=== PATIENT | female | born 1925 | race Caucasian/White ===

== ENCOUNTER → 2016-08-11 | Outpatient (CLI) | payer MEDICARE, BC ==
[~2016-08-11] MED LIST: ACETAMINOPHEN PO; ACTOS PO; ACTOS15 MG PO; AXID AR75 MG PO; AXID150 M1 PO; AXID150 MG PO; CALCIUM 600 + D1 TA1 PO; CALCIUM 600+D T1 TA1 PO; COATED ASPIRIN325 M1 PO; ELIQUIS5 MG PO; FERRO-TIME325 MG PO; FERROUS SULFATE PO; GLUCOPHAGE500 M1 PO; HUMALOG MIX 75/10 ML SUBQ; IRON325 MG PO; KLOR-CON PO; LASIX PO; LEVEMIR FL100 UNIT/1 SUBQ; LEVEMIR SUBQ; LEVEMIR100 UNITS/ SUBQ; LIPITOR PO; LOPRESSOR PO; LYRICA50 MG PO; METFORMIN HCL500 M1 PO; NEURONTIN PO; NITROFURANTOIN100 M3 PO; NORCO 10-325 TA1 TAB PO; NOVOLOG FL100 UNIT/1 SUBQ; NOVOLOG100 U/ML; NOVOLOG100 UNITS/ SUBQ; OMNICEF300 MG PO; OYSTER CALCIUM500 MG PO; PYRIDIUM100 MG PO; TRADJENTA5 MG PO; VIT B-12 PO; ZYLOPRIM100 MG PO; [UNRECOGNIZED DRUG - OTHER]; [UNRECOGNIZED DRUG - REMARK]
--- NOTE | ~2016-08-11 | MR2 ---
[facility] A Service of [facility] & [facility] RADIOLOGY TEXT RESULTS PATIENT: OMAR PALACIOS [facility] : [birth year] UNIT #: [id number] AGE: [address]: Guerrero Toledo MD SEX: F ORDER DR: [id number] [facility] [address] [place], [place] [address] [id number] O MR#: [id number] Acc #: [id number] NAME: OMAR PALACIOS : 1925 SEX: F STUDY DATE/TIME: 08/11/2016 14:20 UNIT: [facility] ROOM: STUDY DESCRIPTION: MR Abdomen WWo Cont Attending Physician: Guerrero Toledo M.D. Referring Physician: Guerrero Toledo M.D. Ordering Physician: Guerrero Toledo M.D. Primary Care Physician: Tito Hernandez Jr., M.D. MRI CENTER REPORT This report is preliminary unless electronic signature is present. EXAM MRI abdomen, with and without contrast. HISTORY Indeterminate renal lesions on recent CT and ultrasound. Observation for renal mass. PROCEDURE Multiplanar, multisequence MR imaging of the abdomen prior to and following 16 mL of MultiHance. COMPARISON STUDIES CT of the abdomen and pelvis, 06/07/2016, and a renal ultrasound from 06/21/2016. FINDINGS ABDOMEN WITHOUT CONTRAST: Mildly elevated right hemidiaphragm. There are a few small stones in the gallbladder; no evidence for active inflammation. The biliary system and pancreatic duct nondilated. There are a few small cysts scattered throughout the pancreas with an index cyst in the uncinate process measuring 3 mm. The spleen, adrenal glands have normal signal. Bowel loops are nondilated. There is a 4.9-cm diverticulum from the second portion of the duodenum, and a 2-cm diverticulum from the junction of the third and fourth portions of the duodenum. ABDOMEN WITH CONTRAST: 8-mm benign pernicious or hemorrhagic cyst, upper pole, left kidney, and a 5-mm benign pernicious or hemorrhagic cortical cyst in the mid to lower right kidney. There is no enhancing renal mass. There is a 9-mm benign simple cyst in the lower pole of the right kidney. No abnormal enhancement in the abdomen. [facility] A Service of [facility] RADIOLOGY TEXT RESULTS PATIENT: OMAR PALACIOS LOCATION: [facility] : [birth year] UNIT #: [id number] AGE: [address]: Guerrero Toledo MD SEX: F ORDER DR: IMPRESSION 1. Subcentimeter benign cysts in both kidneys, as detailed above. No enhancing renal mass. 2. Uncomplicated cholelithiasis. 3. A few tiny cysts in the pancreas, probably benign incidental cysts. Per the ACL white paper, consider attention on a 1-year follow-up. Preferably, this would be with MRI. 4. Duodenal diverticula, as detailed above. Dictated by... Kenroy Sexton M.D. THIS IS AN ELECTRONICALLY VERIFIED REPORT Kenroy Sexton M.D. at 08/13/2016 2:11 PM Ivana TD: 08/12/2016 13:04 JOB #: [id number] MRI CENTER REPORT COPY
[2016-08-11 14:20] LABS: POC - CREATININE 0.77 mg/dL (0.44-1.03); POC - GFR >60.0 mL/min (>60)
== END | disposition home or self-care (01) ==
LOC: CMRI 13:34
PROVIDERS: Urology
DX: N28.89 Other specified disorders of kidney and ureter (principal); N28.1 Cyst of kidney, acquired; K80.20 Calculus of gallbladder without cholecystitis without obstruction; K86.2 Cyst of pancreas; K57.10 Diverticulosis of small intestine without perforation or abscess without bleeding
CPT/HCPCS: 74183; 82565; A9577

== ENCOUNTER 2016-11-23 12:57 | Inpatient (IN) | payer MEDICARE, BC ==
--- NOTE | ~2016-11-23 | CR63 ---
[facility] A Service of [facility] & [facility] RADIOLOGY TEXT RESULTS PATIENT: OMAR PALACIOS LOCATION: [facility] 570-01 : [birth year] UNIT #: [id number] AGE: [address]: Miah Rhodes MD SEX: F ORDER DR: [id number] [facility] [address] [place], [place] [address] [id number] I MR#: [id number] Acc #: [id number] NAME: OMAR PALACIOS : 1925 SEX: F STUDY DATE/TIME: 11/23/2016 16:21 UNIT: [facility] ROOM: [facility] STUDY DESCRIPTION: CR Chest 2 View Attending Physician: Miah Rhodes M.D. Ordering Physician: Miah Rhodes M.D. Primary Care Physician: Tito Hernandez Jr., M.D. MEDICAL IMAGING REPORT This report is preliminary unless electronic signature is present EXAM PA and lateral chest. INDICATIONS Congestive heart failure 2 months. Bilateral which lower extremity edema 2 months. COMPARISON 10/16/2014 FINDINGS There is stable mild interstitial prominence suggesting some mild interstitial edema. No airspace consolidation. Heart size stable. Atherosclerotic calcification of the aorta. Degenerative changes of thoracic spine. IMPRESSION Mild interstitial prominence suggesting mild interstitial edema. Correlate clinically. Dictated by... Brandyn Joiner M.D. THIS IS AN ELECTRONICALLY VERIFIED REPORT Brandyn Joiner M.D. at 11/24/2016 8:18 AM JENNIFER/michelet TD: 11/23/2016 23:54 JOB #: [id number] MEDICAL IMAGING REPORT Page 1 of 1 COPY
--- NOTE | ~2016-11-23 | ST ---
Unit #: [id number] #: [id number] Patient: OMAR PALACIOS [id number] [address] [address] [id number] I MR#: [id number] NAME: OMAR PALACIOS : 1925 SEX: F STUDY DATE/TIME: UNIT: [facility] ROOM: 570 STUDY DESCRIPTION: Stress Test Attending Physician: Miah Rhodes M.D. Primary Care Physician: Tito Hernandez Jr., M.D. CARDIOLOGY REPORT EXAM Lexiscan Cardiolite Stress Test DESCRIPTION Baseline EKG - normal sinus rhythm with ventricular rate 60 beats/minute, left atrial abnormality, Q waves in V, poor R wave progression, prolonged QT. Lexiscan is a four minute test with Lexiscan being injected within the first minute followed by Cardiolite. EKG during the test was equivocal to baseline. No acute ischemic changes. The patient had no complaints of chest pain, palpitations or dizziness. Had increased shortness of breath and fatigueness which resolved in recovery phase. Maximum heart rate response was 76 beats/minute with a maximum blood pressure response of 165/70 mmHg. Cardiolite was injected after Lexiscan within the first minute of the test. Radionuclide test pending. Please correlate with nuclear images. Dictated by... Carlos TraorePYanetRRosemary for Lawrence Tucker/svetlana TD: 11/25/2016 12:09 JOB #: [id number] Unit #: [id number] #: [id number] Patient: OMAR PALACIOS CARDIOLOGY REPORT Page 1 of 1 X Alyson Benjamin APRN CARDIOLOGY REPORT
--- NOTE | ~2016-11-23 | US84 ---
[id number] [facility] [address] [place], [place] [address] [id number] I MR#: [id number] Acc #: [id number] NAME: OMAR PALACIOS : 1925 SEX: F STUDY DATE/TIME: 11/25/2016 9:03 UNIT: [facility] ROOM: 570 STUDY DESCRIPTION: US LE Veins Complete Calderon Stdy Attending Physician: Miah Rhodes M.D. Ordering Physician: Miah Rhodes M.D. Primary Care Physician: Tito Hernandez Jr., M.D. MEDICAL IMAGING REPORT This report is preliminary unless electronic signature is present DATE OF EXAMINATION 11/25/2016 EXAMINATION Bilateral lower extremity venous duplex. CLINICAL HISTORY Bilateral lower extremity swelling x1 month. FINDINGS There is phasic spontaneous flow with respiration seen of the right common femoral, deep femoral, femoral, popliteal veins. There is compressibility of the vein lumen of all the aforementioned vessels. There is flow present with augmentation of the right anterior tibial, posterior tibial, and peroneal vein. There is compressibility of these vein lumens as well. Saphenous vein also has normal phasic spontaneous flow and compressibility. There is phasic spontaneous flow with respiration seen of the left common femoral vein. There is, however, the presence of a small linear, echogenic thrombus seen in the left common femoral vein. There is also phasic spontaneous flow with respiration seen of the left deep femoral, femoral, popliteal vein. There is compressibility of the vein lumen of all the aforementioned vessels. There is flow present with respiration of the left anterior and posterior tibial vein, as well as peroneal veins. There is compressibility of all the aforementioned vessels. Saphenous vein also is compressible as normal flow. IMPRESSION 1. Positive exam for DVT of the left common femoral vein. Based on the appearance of the thrombus, it does appear to be more chronic in nature. 2. No evidence of a DVT of the right lower extremity. Dictated by... Quintin Fine M.D. THIS IS AN ELECTRONICALLY VERIFIED REPORT Quintin Fine M.D. at 12/06/2016 1:47 PM Adrian TD: 11/25/2016 21:54 JOB #: [id number] MEDICAL IMAGING REPORT Page 1 of 1 COPY
--- NOTE | ~2016-11-23 | DS ---
Unit #: [id number] #: [id number] Patient: OMAR PALACIOS [id number] [address] [address] [id number] I MR#: [id number] NAME: OMAR PALACIOS ROOM: 570 Age: 89 Sex: F Admission Date: 11/23/2016 : 1925 Discharge Date: 11/26/2016 Attending Physician: Miah Rhodes M.D. Primary Care Physician: Tito Hernandez Jr., M.D. DISCHARGE SUMMARY DISCHARGE DIAGNOSES 1. 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 2. 2D echocardiogram, 11/23/2016, shows an ejection fraction of 60% with moderate mitral annular calcification. There is moderate to severe mitral regurgitation. Right ventricular systolic pressure 59 mmHg persistent with moderate pulmonary hypertension, mild to moderate tricuspid regurgitation. Aortic valve area is 1.13 cm2 with a maximum gradient of 13 mmHg, mean gradient of 7 mmHg. Moderately calcified aortic valve. 3. Hypertension. 4. Diabetes mellitus type 2. 5. Chronic anemia. 6. Moderate pulmonary hypertension. 7. Dyspnea secondary to valvular heart disease and pulmonary hypertension. DISCHARGE MEDICATIONS 1. Lyrica 50 mg b.i.d. 2. Actos 15 mg q.h.s. 3. Metoprolol tartrate 25 mg b.i.d. 4. Tradjenta 5 mg daily. 5. Furosemide 40 mg b.i.d. 6. Lipitor 20 mg q.h.s. 7. Cozaar 25 mg b.i.d. 8. NovoLog 20 units subcu b.i.d. 9. Levemir 40 mg b.i.d. 10. Ferrous sulfate 325 mg b.i.d. 11. Allopurinol 100 mg q.h.s. 12. Aspirin 81 mg daily. 13. Eliquis 10 mg b.i.d. x7 days and then 5 mg b.i.d. HOSPITAL COURSE This is an 89-year-old white female who was sent for evaluation to the office for lower extremity edema and shortness of breath. She has had worsening leg edema for the past six months. She complained of dyspnea after walking approximately 100 feet. She was admitted to the hospital for presumed congestive heart failure. 2D echocardiogram in the office found the patient to have moderate to severe mitral regurgitation and pulmonary hypertension. There was normal left ventricular systolic function with no diastolic dysfunction noted. She was treated for heart failure initially where she was placed on IV diuretics and Losartan. She is continued on her home dose of statin. BNP was 132. It was felt the leg edema was not because of fluid overload. She was ruled out for venous insufficiency. Venous Doppler study found the patient to have a left Unit #: [id number] #: [id number] Patient: OMAR PALACIOS common femoral deep vein thrombosis but, based on the appearance of the thrombus, it seems to be more chronic in nature. IV diuretics were switched to oral because there was no evidence of heart failure. She was placed on a heparin drip for deep vein thrombosis. It was discussed with the patient her options of anticoagulation with Coumadin versus the NOAC. The patient wanted to try NOAC first. [employer] cost for the patient was one dollar a month. She had no contraindications of bleeding. Her hemoglobin is low at 10.4 for which she has had anemia in the past. She was on an iron supplement prior to admission. She had an EGD with colonoscopy in 2012 for evaluation of anemia, which only mild gastritis was found. She had Lexiscan Cardiolite stress test to rule out ischemic heart disease given her multiple risk factors where there was no ischemia or infarct. Her ejection fraction was 72%. The patient has ambulated in the room without any additional shortness of breath. She still has some edema to her lower extremities; however, it has improved. Her heart rate and blood pressure are stable. She is stable for discharge today. PHYSICAL EXAMINATION VITAL SIGNS: Blood pressure 138/58. Heart rate 59. Temperature 97.4. CHEST: Clear to auscultation. HEART: S1, S2 with regular rate and rhythm. No murmur or rubs or clicks. ABDOMEN: Soft, nontender with bowel sounds present. EXTREMITIES: 1+ leg edema. DIAGNOSTIC STUDIES LABORATORY: Hemoglobin 10.4, hematocrit 32.5, platelet count 209, white count 8.2. Sodium 136, potassium 4.0, BUN 35, creatinine 1.2, glucose 215. CARDIOVASCULAR: Lexiscan Cardiolite stress test shows no ischemia or infarct. Ejection fraction 72%. DISCHARGE INSTRUCTIONS 1. The patient was discharged home today. 2. Follow up with the primary care physician in two to three weeks. She will need a CBC in two weeks to evaluate for anemia. 3. Follow up with Dr. Rhodes on December at 1:15 p.m. 4. Heparin drip will be discontinued prior to discharge. She will start on Eliquis 10 mg b.i.d. starting tonight for seven days and then 5 mg b.i.d. Would defer to primary care physician for further management. Dictated by... Julio C Romero A.P.R.N. for Lwarence Tucker/iraida TD: 11/30/2016 13:24 JOB #: [id number] Unit #: [id number] #: [id number] Patient: OMAR PALACIOS DISCHARGE SUMMARY Page 1 of 1 X Julio C Romero SPEECH COACH X DISCHARGE SUMMARY
--- NOTE | ~2016-11-23 | CO ---
Unit #: [id number] #: [id number] Patient: OMAR PALACIOS [id number] [address] [place], [place] [address] [id number] MR#: [id number] NAME: OMAR PALACIOS ROOM: 570 Age: 89 Sex: F Admission Date: 11/23/2016 : 1925 Attending Physician: Miah Rhodes M.D. Primary Care Physician: Tito Hernandez Jr., M.D. Consultation Date: 11/23/2016 CONSULTATION REPORT HISTORY OF PRESENT ILLNESS This is an 89-year-old female, who is very well known to me from my office with a history of type 2 diabetes mellitus, peripheral neuropathy, insulin dependence, history of congestive heart failure in the past, esophageal dilatation, who is seen by Dr. Rhodes in his office today and she has been complaining of an increasing swelling in the lower extremities over the several months. She declines any orthopnea, dyspnea, and increasing shortness of air at rest. However, she does report some dyspnea on climbing the stairs. She has been admitted by Dr. Rhodes with the impression of congestive heart failure and for the IV diuresis. PAST MEDICAL HISTORY 1. Type 2 diabetes mellitus, insulin dependence. 2. Congestive heart failure history in the past. 3. Diabetic peripheral neuropathy. The patient is on Lyrica. PAST SURGICAL HISTORY Hip replacement, appendectomy, tonsillectomy, back surgery, EGDs with esophageal dilatation. HOME MEDICATIONS Include the Lantus 40 units subcu b.i.d., NovoLog 20 units each meal, Lyrica. She is on Lasix, Lipitor. Currently, she has been started on Lasix 40 mg IV b.i.d., losartan 20 mg b.i.d., metoprolol 25 mg b.i.d. REVIEW OF SYSTEMS A 12-point review of system was completed. Please see HPI. The patient has been complaining of increasing swelling of lower extremities and dyspnea on exertion, but no chest pain. Rest of the review of systems is unremarkable. SOCIAL HISTORY Lives at home. No alcohol or illicit drugs. ALLERGIES Penicillin. FAMILY HISTORY Noncontributory. PHYSICAL EXAMINATION GENERAL: She is awake, alert, oriented to time, place, and person. She is comfortable in the bed, in no acute respiratory distress. VITAL SIGNS: Temperature 98.3, pulse 61, respirations 20, blood pressure Unit #: [id number] #: [id number] Patient: OMAR PALACIOS is 176/68. HEENT: EOMI. Pupils are equally reactive to light. NECK: Supple. No thyromegaly noted. CHEST: Good air entry. CVS: Regular rhythm. S1, S2. No murmurs. ABDOMEN: Soft and nontender. Bowel sounds positive. EXTREMITIES: 3+ edema noted. DIAGNOSTIC STUDIES LABORATORY RESULTS: Labs have been drawn, they have been pending. ASSESSMENT 1. Type 2 diabetes mellitus, insulin dependent. 2. Congestive heart failure compensated chronic. 3. Peripheral neuropathy. PLAN We will start the patient's home insulin Levemir 40 units subcu b.i.d., NovoLog 15 units with each meal plus supplemental insulin as needed, consistent carb diet. Cardiology to follow the patient. Thanks again for consultation. Dictated by... Lawrence Gonzalez/dinesh TD: 11/24/2016 03:05 JOB #: [id number] CONSULTATION REPORT Page 1 of 1 X Lizzie Vazquez MD X CONSULTATION REPORT
--- NOTE | ~2016-11-23 | TH ---
Unit #: [id number] #: [id number] Patient: OMAR PALACIOS [id number] [address] [address] [id number] I MR#: [id number] NAME: OMAR PALACIOS : 1925 SEX: F STUDY DATE/TIME: 11/25/2016 UNIT: [facility] ROOM: 570 STUDY DESCRIPTION: NUCLEAR STUDY Attending Physician: Miah Rhodes M.D. Primary Care Physician: Tito Hernandez Jr., M.D. CARDIOLOGY REPORT EXAM Nuclear Study DESCRIPTION This 89-year-old patient received 0.4 mg of Lexiscan intravenously, followed by 32 mCi of technetium-99m Cardiolite and images were obtained according to a standard SPECT protocol. For rest images 12 mCi of Cardiolite was injected. Images were reviewed in both phases. FINDINGS Images quality is excellent. LV cavity size is normal in both images. There is no lung activity. RV is normal. Rotating raw data showed no significant artifact, soft tissue attenuation, or GI uptake. Review of SPECT images showed normal homogeneous radiotracer concentration throughout the myocardium in both the stress and rest images. Gated images showed normal LV wall thickening and wall motion with an estimated LV ejection fraction of 72%. IMPRESSION 1. Myocardial perfusion imaging is normal. 2. No evidence of ischemia or infarct. Normal LV dimensions. Normal systolic LV function with an estimated left ventricular ejection fraction of 72%. Dictated by... Lawrence Lobo/kennedy TD: 11/25/2016 15:47 JOB #: [id number] Unit #: [id number] #: [id number] Patient: OMAR PALACIOS CARDIOLOGY REPORT Page 1 of 1 X Walt Franklin MD CARDIOLOGY REPORT
[~2016-11-23 12:57] MED LIST changes: -ELIQUIS5 MG PO; -LOPRESSOR PO; -TRADJENTA5 MG PO
[2016-11-23 17:40] LABS: ALBUMIN SERUM 3.7 g/dL (3.5-5.0); BILIRUBIN,TOTAL 0.5 mg/dL (0.2-2.0); BUN/CREATININE RATIO 20.9; CALCIUM SERUM 9.2 mg/dL (8.4-10.2); CREATININE SERUM 1.1 mg/dL (0.6-1.4); GLOM FILT RATE Estimated 44.5 mL/min (>60); POTASSIUM 4.2 mmol/L (3.5-5.1); PROTEIN TOTAL SERUM 7.5 g/dL (6.0-8.3)
[2016-11-23 18:05] LABS: THYROID STIMULATING HORMONE 3.66 uIU/ml (0.34-5.60)
[2016-11-23 18:12] LABS: FREE THYROXIN (T4) 0.66 ng/dL (0.58-1.64)
[2016-11-23] MEDS ORDERED: TRADJENTA5 MG PO (18:12)
[2016-11-23] MEDS ORDERED: LOPRESSOR PO (18:12)
[2016-11-24 07:13] LABS: BUN/CREATININE RATIO 22.72; CALCIUM SERUM 8.8 mg/dL (8.4-10.2); CREATININE SERUM 1.1 mg/dL (0.6-1.4); GLOM FILT RATE Estimated 44.5 mL/min (>60)
[2016-11-25 06:52] LABS: CALCIUM SERUM 8.7 mg/dL (8.4-10.2); CREATININE SERUM 1.4 mg/dL (0.6-1.4); GLOM FILT RATE Estimated 33.2 mL/min (>60); MAGNESIUM 1.9 mg/dL (1.6-3.0); POTASSIUM 4.4 mmol/L (3.5-5.1)
[2016-11-25 14:11] LABS: HEMATOCRIT 37.1 % (35.0-45.0); HEMOGLOBIN 11.7 gm/dL (12.0-16.0); MEAN CORPUSCULAR HEMOGLOBIN 28.3 PG (28-34); MEAN CORPUSCULAR HGB CONC 31.4 g/dL (30-36); MEAN PLATELET VOLUME 9.2 FL (6.5-11.5); RED BLOOD COUNT 4.13 X10e (3.90-5.30); RED CELL DISTRIBUTION WIDTH 17.3 % (11.0-15.5); WHITE BLOOD COUNT 10.4 X10e3 (4.0-10.5)
[2016-11-26 05:08] LABS: HEMATOCRIT 32.5 % (35.0-45.0); HEMOGLOBIN 10.4 gm/dL (12.0-16.0); MEAN CELL VOLUME 89.5 FL (83-96); MEAN CORPUSCULAR HEMOGLOBIN 28.6 PG (28-34); RED BLOOD COUNT 3.63 X10e (3.90-5.30); RED CELL DISTRIBUTION WIDTH 16.8 % (11.0-15.5); WHITE BLOOD COUNT 8.2 X10e3 (4.0-10.5)
[2016-11-26 05:19] LABS: BUN/CREATININE RATIO 29.16; CALCIUM SERUM 8.6 mg/dL (8.4-10.2); CREATININE SERUM 1.2 mg/dL (0.6-1.4)
[2016-11-26 05:24] LABS: PARTIAL THROMBOPLASTIN TIME 28.4 SECONDS (23.5-31.3); PROTHROMBIN TIME (PATIENT) 10.9 SECONDS (10.0-11.7)
[2016-11-26] MEDS ORDERED: ELIQUIS5 MG PO (16:29)
== END 2016-11-26 19:11 | disposition home or self-care (01) | DRG 292 ==
LOC: C5C 12:57
PROVIDERS: Internal Medicine Cardiovascular Disease; Nurse Practitioner
DX: I11.0 Hypertensive heart disease with heart failure (principal); I82.512 Chronic embolism and thrombosis of left femoral vein; E11.42 Type 2 diabetes mellitus with diabetic polyneuropathy; I27.2 Other secondary pulmonary hypertension; Z79.4 Long term (current) use of insulin; Z96.649 Presence of unspecified artificial hip joint; Z88.0 Allergy status to penicillin; I50.9 Heart failure, unspecified; M19.90 Unspecified osteoarthritis, unspecified site; Z86.73 Personal history of transient ischemic attack (TIA), and cerebral infarction without residual deficits; M54.9 Dorsalgia, unspecified; I34.0 Nonrheumatic mitral (valve) insufficiency; D64.89 Other specified anemias
CPT/HCPCS: 71020; 78452; 80048; 80053; 80061; 82947; 83036; 83735; 83880; 84439; 84443; 85027; 85610; 85730; 93017; 93970; A9500; J1644; J1815; J1940; J2785

== ENCOUNTER → 2016-12-13 | Outpatient (CLI) | payer MEDICARE, BC ==
[~2016-12-13] MED LIST changes: +ELIQUIS5 MG PO; +LOPRESSOR PO; +TRADJENTA5 MG PO
[2016-12-13 11:23] LABS: HEMATOCRIT 35.5 % (35.0-45.0); HEMOGLOBIN 11.2 gm/dL (12.0-16.0); MEAN CELL VOLUME 90.5 FL (83-96); MEAN CORPUSCULAR HEMOGLOBIN 28.6 PG (28-34); MEAN CORPUSCULAR HGB CONC 31.6 g/dL (30-36); RED BLOOD COUNT 3.92 X10e (3.90-5.30); RED CELL DISTRIBUTION WIDTH 17.1 % (11.0-15.5); WHITE BLOOD COUNT 9.6 X10e3 (4.0-10.5)
== END | disposition home or self-care (01) ==
LOC: CLAB 10:29
DX: D64.9 Anemia, unspecified (principal)
CPT/HCPCS: 36415; 85027